=== PATIENT | male | born 1980 | race Caucasian/White ===

== ENCOUNTER 2017-01-17 10:52 | Emergency (ER) | payer SELFPAY ==
[~2017-01-17] VITALS: Ht 180.3 cm; Wt 85.2 kg
[~2017-01-17 10:52] MED LIST: AMOX500C3 PO; IBUP-103 PO; METR500T PO; OXYC-106 PO
[2017-01-17 10:54] VITALS: TEMP 36.7; Ht 180.3 cm; Wt 85.2 kg
[2017-01-17] MEDS ORDERED: IBUPROFEN 600 MG TAB PO STA (11:05)
--- NOTE | 2017-01-17 11:39 | DIAGNOSTIC IMAGING REPORT ---
R RIBS UNILATERAL WITH PA CHEST CLINICAL HISTORY: trauma right ribs. Right rib pain. COMPARISON STUDY: None. FINDINGS: The lungs are clear. The heart is normal in size. No pleural effusions. No pneumothorax. Minimally displaced fracture within the right anterior 10th rib. IMPRESSION: Right anterior 10th rib fracture. No pneumothorax. Electronically signed by: Lamonte Caballero M.D. 01/17/2017 11:38 AM Dictated Date/Time: 01/17/2017 11:36 AM
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
[2017-01-17] MEDS ORDERED: HYDR-5688 PO (11:48)
[2017-01-17 11:55] VITALS: BP 130/92; PULSE 77; O2SAT 98
== END 2017-01-17 11:56 | disposition home or self-care (01) ==
LOC: C.EDB 10:53 → C.EDD 11:56
DX: S22.31XA Fracture of one rib, right side, initial encounter for closed fracture (principal); X58.XXXA Exposure to other specified factors, initial encounter; Y93.89 Activity, other specified; Y99.8 Other external cause status; Z72.0 Tobacco use